=== PATIENT | female | born 1985 | race Caucasian/White ===

== ENCOUNTER 2019-03-02 14:55 | Observation (INO) | payer OTHER, SELFPAY ==
[2019-03-02] VITALS (8 sets, daily range): BP systolic 108–126; BP diastolic 70–80; PULSE 66–98; RESP 12–21; TEMP 36.3–36.7; O2SAT 94–100
--- NOTE | 2019-03-02 | PATH_ITS ---
[facility] Accession Number: [id number] . 01 Material submitted: . appendix - APPENDIX . 01 Clinical history: . ABDOMINAL PAIN . 02 Diagnosis: Appendix: Acute appendicitis. MRV/03/05/2019 . 02 Electronically signed: . Carloz Zelaya MD, Pathologist NPI- [id number] . 01 Gross description: . Received in formalin, labeled appendix, is an intact appendix (length-7.3 cm, diameter-0.9 cm) with bonilla-pink dull smooth serosa and attached mesoappendix (up to 1.0 cm in depth). The resection margin is received stapled. The lumen contains brown solid-soft material. The wall is up to 0.3 cm thick. No nodules, masses or lesions are identified. The resection margin is inked black. Section code: (A1) resection margin en face and three solar sales representative proximal serial sections; (A2) four solar sales representative distal serial sections; (A3) one half of the bivalved tip. ([id number]) /MRV . 02 Pathologist provided ICD-10: K35.80 . 02 CPT . 137028 Performed at: 01 [facility] [address], [place], [place] [id number] MD Ismael Aguillon MD Phone: [phone] Performed at: 02 [facility] [address] [place], [place] [id number] MD Sonia Qiu MD Phone: [phone]
--- NOTE | 2019-03-02 17:18 | DI.US.S_ITS ---
PROCEDURE: US PELVIC COMPLETE INDICATIONS: RIGHT LOWER QUADRANT PAIN TECHNIQUE: Real-time scanning was performed of the pelvic organs, with image documentation. Additional endovaginal scanning was necessary due to incomplete visualization of the adnexal and endometrial structures by transabdominal scanning. COMPARISON: [facility], CT, CT ABDOMEN PELVIS W CON, 03/02/2019, 18:40. FINDINGS: Transabdominal scanning: Limited scanning through the kidneys shows no hydronephrosis. No pathologic free abdominal or pelvic fluid. The appendix is not identified. Endovaginal scanning: Uterus: Uterus is retroverted and normal in size at 4.8 x 3 x 4.8 cm. No mass. The endometrium measures 6 mm in combined thickness. Ovaries: No mass or cystic lesion. Normal color and spectral Doppler. Right ovary measures 2.8 x 1.6 x 1.8 cm. Left ovary measures 1.9 x 1.1 x 1.7 cm. IMPRESSION: 1. Normal uterus and endometrium. Normal ovaries. 2. Appendix is not identified. No free fluid. Dictated by: Ezra Sam M.D. on 03/02/2019 at 19:38 Approved by: Ezra Sam M.D. on 03/02/2019 at 19:41
[2019-03-02 17:49] LABS: RBC Urine None Seen (0-5/HPF)
[2019-03-02 18:02] LABS: Bacteria Urine Occasional (0-1); Culture Indicated Urine Specimen Cultured; Renal Epithelial Cells Urine 0-1/HPF (0-1/HPF); Squamous Epithelial Cell Urine 0-1 /HPF (0-5/HPF); WBC Urine 1-5/HPF (0-5/HPF)
[2019-03-02 18:32] LABS: Add Manual Diff / Slide Review NO; Basophils Absolute Auto 0 /uL (0-100); Basophils Percent Auto 0.2 % (0-2); Eosinophils Absolute Auto 100 /uL (0-450); Eosinophils Percent Auto 0.5 % (2-4); Hematocrit 40.2 % (36-46); Hemoglobin 13.3 g/dL (12.0-16.0); Lymphocytes Absolute Auto 1100 /uL (1100-4500); Lymphocytes Percent Auto 9.1 % (25-40); Mean Corpuscular HGB Conc 33.1 % (30-36); Mean Corpuscular Hemoglobin 30.2 PG (26-34); Mean Corpuscular Volume 91.1 fL (80-100); Monocytes Absolute Auto 900 /uL (0-900); Monocytes Percent Auto 7.5 % (3-14); Neutrophils Absolute Auto 10100 /uL (1500-7000); Neutrophils Percent Auto 82.7 % (50-75); Platelet Count 244 X10^3/uL (150-400); Red Blood Cell Count 4.41 X10^6/uL (4.0-5.2); Red Cell Distribution Width 12.8 % (11.6-14.8); White Blood Cell Count 12.2 X10^3/uL (4.5-11.0)
--- NOTE | 2019-03-02 18:35 | DI.CT.S_ITS ---
PROCEDURE: CT ABDOMEN PELVIS W CON INDICATIONS: RLQ pain TECHNIQUE: After the administration of intravenous contrast, 5 mm thick sections acquired from the diaphragm to the symphysis. 5 mm coronal and sagittal reformats were acquired. For radiation dose reduction, the following was used: automated exposure control, adjustment of mA and/or kV according to patient size. COMPARISON: Same day pelvic ultrasound. FINDINGS: Image quality: Excellent. ABDOMEN: Lung bases: Lung bases are clear. Heart size is normal. Solid organs: Liver is normal in size and enhancement. Gallbladder is unremarkable. No calcified gallstones. Biliary system is non dilated. Pancreas enhances normally. Spleen is normal in size and enhancement. No adrenal nodules. Kidneys demonstrate normal size and enhancement, without hydronephrosis. Peritoneum and bowel: The appendix is mildly dilated measuring up to 1.2 cm, (2/50). There is a mild amount of surrounding fat stranding and trace free fluid. Question of a small appendicolith. No free air. No bowel obstruction. There is increased on the colon. Nodes and vessels: No retroperitoneal or mesenteric adenopathy by size criteria. Aorta and inferior vena cava are normal in size. Miscellaneous: No ventral hernias. PELVIS: Genitourinary: Uterus is vertically oriented/retroverted. Bladder wall thickness is normal. Miscellaneous: No inguinal hernias or adenopathy. Bones: No suspicious bony lesions. No vertebral body compression fractures. IMPRESSION: Findings consistent with acute appendicitis. No perforation demonstrated. Comment: Findings were discussed with MINERVA Sandoval at the time of dictation. Dictated by: Ezra Sam M.D. on 03/02/2019 at 19:41 Approved by: Ezra Sam M.D. on 03/02/2019 at 19:48
[2019-03-02 18:40] LABS: INR 1.1 (0.9-1.3); Prothrombin Time 12.5 SECONDS (10.1-12.7)
[2019-03-02 18:43] LABS: PTT Partial Thromboplastin Tim 32 SECONDS (26.4-36.2)
[2019-03-02 18:44] LABS: Alanine Aminotransferase 18 IU/L (9-52); Albumin 4.6 g/dL (3.5-5.0); Albumin Globulin Ratio 1.4 (1.0-2.8); Alkaline Phosphatase 94 U/L (38-126); Aspartate Aminotransferase 18 IU/L (14-36); BUN Creatinine Ratio 26.7 (6-22); Bilirubin Total 0.7 mg/dL (0.2-1.3); Blood Urea Nitrogen 16 mg/dL (7-17); Calcium 9.6 mg/dL (8.4-10.2); Carbon Dioxide 28 mmol/L (22-32); Chloride 104 mmol/L (98-107); Estimated Glomerular Filt Rate > 60.0 mL/min (>60); Globulin 3.3 g/dL (1.7-4.1); Glucose 86 mg/dL (70-100); HEMOLYSIS 29 (0-50); Lipase 112 U/L (23-300); Potassium 3.6 mmol/L (3.4-5.1); Sodium 142 mmol/L (137-145); Total Protein 7.9 g/dL (6.3-8.2)
[2019-03-02] MEDS: SODIUM CHLORIDE 0.9% 1,000 ML 150 ML IV (20:59)
[2019-03-02] MEDS: PIPERACILLIN-TAZO 3.375 GM/50 ML FROZ.PIGGY IV (20:59)
--- NOTE | 2019-03-02 21:15 | PM.HP.1 ---
History of Present Illness Date Patient Seen: 03/02/19 Time Patient Seen: 21:16 Chief complaint: ABDOMINAL PAIN Narrative: 33yo F [facility] the [facility] with just over 24 hrs of lower abd pain. It started as cramping pain but became sharper this morning. Now feels like a 'bad side stitch.' No nausea or vomiting. Came over to get assessed rather than stay on the [facility] overnight. Found to have a mild leukocytosis and CT findings consistent with appendicitis. She is non-toxic in appearance. Zosyn and IV fluids started in ED. She and have several appropriate questions and we reviewed all of these. She would like to pump prior to going back to the OR. Patient History Medical History Mother currently breast-feeding (Acute) Meds Home Medications Medication Instructions Recorded Confirmed Type No Known Home Medications 03/02/19 03/02/19 History Allergies Allergy/AdvReac Type Severity Reaction Status Date / Time No Known Drug Allergies Allergy Verified 03/02/19 21:00 Review of Systems Constitutional Constitutional: Reports as per HPI Exam Vital Signs (past 8 hours): - 03/02/19 16:29 Temperature 98.1 F Pulse Rate 90 Respiratory Rate 13 Blood Pressure 114/77 Pulse Oximetry 99 Oxygen Delivery Method Room Air Narrative Exam Narrative: AAO, NAD, female of healthy weight EOMI, MMM, no scleral icterus unlabored RA soft, nd, moderate ttp RLQ with no peritoneal signs MAEW visible skin dry and intact Objective Imaging CT scan - abdomen: Radiologist's impression: IMPRESSION: Findings consistent with acute appendicitis. No perforation demonstrated. Labs Result Diagrams: 03/02/19 17:00 03/02/19 17:00 Labs: Laboratory Results - last 24 hr 03/02/19 03/02/19 03/02/19 17:00 17:00 17:00 WBC 12.2 H RBC 4.41 Hgb 13.3 Hct 40.2 MCV 91.1 MCH 30.2 MCHC 33.1 RDW 12.8 Plt Count 244 Neut % (Auto) 82.7 H Lymph % (Auto) 9.1 L Beadle % (Auto) 7.5 Eos % (Auto) 0.5 L Baso % (Auto) 0.2 Neut # (Auto) 73087 H Lymph # (Auto) 1100 Beadle # (Auto) 900 Eos # (Auto) 100 Baso # (Auto) 0 PT 12.5 INR 1.1 APTT 32 Sodium 142 Potassium 3.6 Chloride 104 Carbon Dioxide 28 BUN 16 Creatinine 0.60 Estimated GFR > 60.0 BUN/Creatinine Ratio 26.7 H Glucose 86 Calcium 9.6 Total Bilirubin 0.7 AST 18 ALT 18 Alkaline Phosphatase 94 Total Protein 7.9 Albumin 4.6 Globulin 3.3 Albumin/Globulin Ratio 1.4 Lipase 112 Urine RBC Urine WBC Ur Squamous Epith Cells Ur Renal Epithelial Cell Urine Bacteria Ur Culture Indicated? 03/02/19 17:05 WBC RBC Hgb Hct MCV MCH MCHC RDW Plt Count Neut % (Auto) Lymph % (Auto) Beadle % (Auto) Eos % (Auto) Baso % (Auto) Neut # (Auto) Lymph # (Auto) Beadle # (Auto) Eos # (Auto) Baso # (Auto) PT INR APTT Sodium Potassium Chloride Carbon Dioxide BUN Creatinine Estimated GFR BUN/Creatinine Ratio Glucose Calcium Total Bilirubin AST ALT Alkaline Phosphatase Total Protein Albumin Globulin Albumin/Globulin Ratio Lipase Urine RBC None seen Urine WBC 1-5/hpf Ur Squamous Epith Cells 0-1 /hpf Ur Renal Epithelial Cell 0-1/hpf Urine Bacteria Occasional (0-1) Ur Culture Indicated? Specimen cultured Assessment & Plan (1) Appendicitis: Current visit: Yes Status: Acute Assessment & Plan narrative: - plan for OR --> all R/B/A discussed and pt wishes to proceed - Zosyn started in ED - IVFs, NPO, prn pain meds - discussed plan for travel home and breast feeding with caveat of changes pending OR findings and clinical course; pt and ask many appropriate questions and all current questions reviewed
--- NOTE | 2019-03-02 21:22 | P.HP_ITS ---
History of Present Illness Date Patient Seen: 03/02/19 Time Patient Seen: 21:16 Chief complaint: ABDOMINAL PAIN Narrative: 33yo F visiting the [facility] from the [facility] with just over 24 hrs of lower abd pain. It started as cramping pain but became sharper this morning. Now feels like a 'bad side stitch.' No nausea or vomiting. Came over to get assessed rather than stay on the [facility] overnight. Found to have a mild leukocytosis and CT findings consistent with appendicitis. She is non-toxic in appearance. Zosyn and IV fluids started in ED. She and have several appropriate questions and we reviewed all of these. She would like to pump prior to going back to the OR. Patient History Medical History Mother currently breast-feeding (Acute) Meds Home Medications Medication Instructions Recorded Confirmed Type No Known Home Medications 03/02/19 03/02/19 History Allergies Allergy/AdvReac Type Severity Reaction Status Date / Time No Known Drug Allergies Allergy Verified 03/02/19 21:00 Review of Systems Constitutional Constitutional: Reports as per HPI Exam Vital Signs (past 8 hours): - 03/02/19 16:29 Temperature 98.1 F Pulse Rate 90 Respiratory Rate 13 Blood Pressure 114/77 Pulse Oximetry 99 Oxygen Delivery Method Room Air Narrative Exam Narrative: AAO, NAD, female of healthy weight EOMI, MMM, no scleral icterus unlabored RA soft, nd, moderate ttp RLQ with no peritoneal signs MAEW visible skin dry and intact Objective Imaging CT scan - abdomen: Radiologist's impression: IMPRESSION: Findings consistent with acute appendicitis. No perforation demonstrated. Labs Result Diagrams: 03/02/19 17:00 03/02/19 17:00 Labs: Laboratory Results - last 24 hr 03/02/19 03/02/19 03/02/19 17:00 17:00 17:00 WBC 12.2 H RBC 4.41 Hgb 13.3 Hct 40.2 MCV 91.1 MCH 30.2 MCHC 33.1 RDW 12.8 Plt Count 244 Neut % (Auto) 82.7 H Lymph % (Auto) 9.1 L Butler % (Auto) 7.5 Eos % (Auto) 0.5 L Baso % (Auto) 0.2 Neut # (Auto) 21290 H Lymph # (Auto) 1100 Butler # (Auto) 900 Eos # (Auto) 100 Baso # (Auto) 0 PT 12.5 INR 1.1 APTT 32 Sodium 142 Potassium 3.6 Chloride 104 Carbon Dioxide 28 BUN 16 Creatinine 0.60 Estimated GFR > 60.0 BUN/Creatinine Ratio 26.7 H Glucose 86 Calcium 9.6 Total Bilirubin 0.7 AST 18 ALT 18 Alkaline Phosphatase 94 Total Protein 7.9 Albumin 4.6 Globulin 3.3 Albumin/Globulin Ratio 1.4 Lipase 112 Urine RBC Urine WBC Ur Squamous Epith Cells Ur Renal Epithelial Cell Urine Bacteria Ur Culture Indicated? 03/02/19 17:05 WBC RBC Hgb Hct MCV MCH MCHC RDW Plt Count Neut % (Auto) Lymph % (Auto) Butler % (Auto) Eos % (Auto) Baso % (Auto) Neut # (Auto) Lymph # (Auto) Butler # (Auto) Eos # (Auto) Baso # (Auto) PT INR APTT Sodium Potassium Chloride Carbon Dioxide BUN Creatinine Estimated GFR BUN/Creatinine Ratio Glucose Calcium Total Bilirubin AST ALT Alkaline Phosphatase Total Protein Albumin Globulin Albumin/Globulin Ratio Lipase Urine RBC None seen Urine WBC 1-5/hpf Ur Squamous Epith Cells 0-1 /hpf Ur Renal Epithelial Cell 0-1/hpf Urine Bacteria Occasional (0-1) Ur Culture Indicated? Specimen cultured Assessment & Plan (1) Appendicitis: Current visit: Yes Status: Acute Assessment & Plan narrative: - plan for OR --> all R/B/A discussed and pt wishes to proceed - Zosyn started in ED - IVFs, NPO, prn pain meds - discussed plan for travel home and breast feeding with caveat of changes pe nding OR findings and clinical course; pt and ask many appropriate questions and all current questions reviewed
--- NOTE | 2019-03-02 21:38 | ED.ABDPAIN ---
HPI - Abdominal Pain <[facility] - Last Filed: 03/02/19 21:44> General Chief Complaint: Abdominal Pain Stated Complaint: ABDOMINAL PAIN Time Seen by Provider: 03/02/19 15:47 Source: patient and family Mode of arrival: ambulatory Limitations: no limitations History of Present Illness HPI narrative: The patient is a 33-year-old female nonsmoker who is 6 months who presents with a chief complaint of right lower quadrant pain. She states it started in the center of her abdomen, like menstrual cramps and then radiated over to her right. She denies any fevers, complains of chills. She denies any vomiting or diarrhea, but complains of general malaise. The patient declined pain medications on my exam. She states she has not started her menstrual cycles again yet since she is breast feeding. She denies any overt fevers. She has not taken anything for pain. She denies any urgency dysuria or frequency. Last solid intake was 10:00 a.m.. Related Data Home Medications Medication Instructions Recorded Confirmed No Known Home Medications 03/02/19 03/02/19 Previous Rx's Medication Instructions Recorded oxycodone 5 mg PO Q4-6H PRN #30 tab 03/02/19 Allergies Allergy/AdvReac Type Severity Reaction Status Date / Time No Known Drug Allergies Allergy Verified 03/02/19 21:00 Review of Systems <PORTER Sandoval - Last Filed: 03/02/19 21:44> Review of Systems GENERAL: Denies chills, fatigue, malaise, fever, sweats. HEENT: Denies sinus pain, ear pain, sore throat, difficulty swallowing, dizziness. RESPIRATORY: Denies dyspnea, cough, wheezing, hemoptysis, sputum. CARDIOVASCULAR: Denies chest pain, palpitations, orthopnea, edema, GASTROINTESTINAL: See HPI : Denies dysuria, frequency, incontinence, hematuria, urinary retention. MUSCULOSKELETAL: denies weakness, joint pain, or bony pain SKIN: Denies rash, skin lesions, or other NEUROLOGIC: Denies weakness, headache, numbness, change in speech, confusion, seizures, incoordination. PSYCHIATRIC: No concerning psychosocial issues. 12 point review of systems is negative except for those stated above PFSH <[facility] - Last Filed: 03/02/19 21:44> Medical History Mother currently breast-feeding (Acute) Exam <ROSALINA Sandoval - Last Filed: 03/02/19 21:44> Narrative Exam Narrative: GENERAL: This is a well-nourished, well-developed patient, lying on stretcher HEAD: Atraumatic. Normocephalic. No temporal or scalp tenderness. EYES: Pupils equal round and reactive. Extraocular motions intact. No scleral icterus. No injection or drainage. ENT: Nose without bleeding, purulent drainage or septal hematoma. Throat without erythema, tonsillar hypertrophy or exudate. Uvula midline. Airway patent. NECK: Trachea midline. No JVD or lymphadenopathy. Supple, nontender, no meningeal signs. CARDIOVASCULAR: Regular rate and rhythm without murmurs, gallops, or rubs. RESPIRATORY: Clear to auscultation. Breath sounds equal bilaterally. No wheezes, rales, or rhonchi. No cough. No increased respiratory effort. No accessory muscle use. GASTROINTESTINAL: Abdomen soft, active bowel sounds all 4 quadrants. Patient has tenderness to palpation of right lower quadrant with slight guarding. No peritoneal signs noted. EXTREMITIES: No clubbing, cyanosis, or edema. No joint tenderness, effusion, or edema noted. BACK: Nontender without deformity or crepitance. No CVA tenderness bilaterally NEURO: AOx3. SKIN: No rash or erythema. Initial Vital Signs Initial Vital Signs: Vital Signs Temperature 98.1 F 03/02/19 16:29 Pulse Rate 90 03/02/19 16:29 Respiratory Rate 13 03/02/19 16:29 Blood Pressure 114/77 03/02/19 16:29 Pulse Oximetry 99 03/02/19 16:29 <Chase Barraza DO - Last Filed: 03/03/19 00:11> Initial Vital Signs Initial Vital Signs: Vital Signs Temperature 98.1 F 03/02/19 16:29 Pulse Rate 90 03/02/19 16:29 Respiratory Rate 13 03/02/19 16:29 Blood Pressure 114/77 03/02/19 16:29 Pulse Oximetry 99 03/02/19 16:29 Course <ROSALINA Sandoval - Last Filed: 03/02/19 21:44> Orders Ordered: ED Orders 03/02/19 17:00 Complete Blood Count AUTO DIFF Stat Comprehensive Metabolic Panel Stat Lipase Stat Partial Thromboplastin Time Stat Prothrombin Time INR Stat 03/02/19 17:05 Urine Culture Stat Urine Microscopic Stat 03/02/19 17:18 US pelvic complete Stat 03/02/19 18:35 CT abdomen pelvis w con Stat Acetaminophen (Tylenol) 650 mg PO Q6HR PRN PRN Reason: As Needed for Fever/Mild Pain Docusate Sodium (Colace) 100 mg PO BID PRN PRN Reason: Constipation Hydromorphone HCl (Dilaudid) 1 mg IV Q4HR PRN PRN Reason: Pain, Moderate (4-6) Sodium Chloride (Normal Saline 0.9%) 1,000 mls @ 100 mls/hr IV CONT KAI Ibuprofen (Advil) 600 mg PO Q6HR PRN PRN Reason: As Needed for Fever/Mild Pain Naloxone HCl (Narcan) 0.2 mg IV Q2MIN PRN PRN Reason: Opiate Reversal Oxycodone/Acetaminophen (Percocet 5/325) 1 tab PO Q4HR PRN PRN Reason: Pain, Moderate (4-6) Discontinued Medications Bupivacaine HCl/Epinephrine Bitart (Sensorcaine 0.25% W/ Epi (Pf)) 30 ml INJ INTRA-OP ONE Stop: 03/02/19 22:14 Last Admin: 03/02/19 22:15 Dose: 20 ml Hydromorphone HCl (Dilaudid) 0.5 mg IV Q5MIN PRN PRN Reason: Pain, Moderate (4-6) Stop: 03/03/19 00:01 Hydromorphone HCl (Dilaudid) 0.25 mg IV Q5MIN PRN PRN Reason: Pain, Mild (1-3) Hydromorphone HCl (Dilaudid) 1 mg IV Q5MIN PRN PRN Reason: Pain, Severe (7-10) Piperacillin/Tazobactam/Dextrose (Zosyn) 3.375 gm in 50 mls @ 100 mls/hr IV NOW ONE Stop: 03/02/19 20:30 Last Infusion: 03/02/19 21:57 Dose: 0 mls/hr Infusion: 03/02/19 21:34 Dose: 100 mls/hr Admin: 03/02/19 20:59 Dose: 100 mls/hr Sodium Chloride (Normal Saline 0.9%) 1,000 mls @ 150 mls/hr IV CONT KAI Last Infusion: 03/02/19 23:47 Dose: 0 mls/hr Infusion: 03/02/19 21:34 Dose: 150 mls/hr Admin: 03/02/19 20:59 Dose: 150 mls/hr Lactated Ringer's (Lactated Ringers) 1,000 mls @ 42 mls/hr IV CONT KAI Acetaminophen (Ofirmev) 1,000 mg in 100 mls @ 400 mls/hr IV NOW ONE Stop: 03/02/19 22:47 Last Infusion: 03/02/19 22:36 Dose: 0 mls/hr Admin: 03/02/19 22:20 Dose: 400 mls/hr Lorazepam (Ativan) 0.25 mg IV NOW PRN PRN Reason: Anxiety Last Admin: 03/02/19 23:15 Dose: 0.25 mg Ondansetron HCl (Zofran) 4 mg IV NOW PRN PRN Reason: Nausea And Vomiting Last Admin: 03/02/19 23:16 Dose: 4 mg Oxycodone HCl (Percolone) 5 mg PO Q30MIN PRN PRN Reason: Mild or moderate pain Last Admin: 03/02/19 23:31 Dose: 5 mg Vital Signs - 8 hr 03/02/19 16:29 03/02/19 21:35 03/02/19 23:04 Temperature 98.1 F 97.6 F Pulse Rate 90 98 H 89 Respiratory Rate 13 18 21 Blood Pressure 114/77 126/70 Blood Pressure [Left Arm] 108/72 Pulse Oximetry 99 99 97 03/02/19 23:07 03/02/19 23:12 03/02/19 23:17 Temperature Pulse Rate 75 70 68 Respiratory Rate 13 12 12 Blood Pressure 111/80 118/77 121/77 Blood Pressure [Left Arm] Pulse Oximetry 97 99 97 03/02/19 23:35 Temperature Pulse Rate 67 Respiratory Rate 12 Blood Pressure 121/80 Blood Pressure [Left Arm] Pulse Oximetry 94 <Chase Barraza DO - Last Filed: 03/03/19 00:11> Orders Ordered: ED Orders 03/02/19 17:00 Complete Blood Count AUTO DIFF Stat Comprehensive Metabolic Panel Stat Lipase Stat Partial Thromboplastin Time Stat Prothrombin Time INR Stat 03/02/19 17:05 Urine Culture Stat Urine Microscopic Stat 03/02/19 17:18 US pelvic complete Stat 03/02/19 18:35 CT abdomen pelvis w con Stat Acetaminophen (Tylenol) 650 mg PO Q6HR PRN PRN Reason: As Needed for Fever/Mild Pain Docusate Sodium (Colace) 100 mg PO BID PRN PRN Reason: Constipation Hydromorphone HCl (Dilaudid) 1 mg IV Q4HR PRN PRN Reason: Pain, Moderate (4-6) Sodium Chloride (Normal Saline 0.9%) 1,000 mls @ 100 mls/hr IV CONT KAI Ibuprofen (Advil) 600 mg PO Q6HR PRN PRN Reason: As Needed for Fever/Mild Pain Naloxone HCl (Narcan) 0.2 mg IV Q2MIN PRN PRN Reason: Opiate Reversal Oxycodone/Acetaminophen (Percocet 5/325) 1 tab PO Q4HR PRN PRN Reason: Pain, Moderate (4-6) Discontinued Medications Bupivacaine HCl/Epinephrine Bitart (Sensorcaine 0.25% W/ Epi (Pf)) 30 ml INJ INTRA-OP ONE Stop: 03/02/19 22:14 Last Admin: 03/02/19 22:15 Dose: 20 ml Hydromorphone HCl (Dilaudid) 0.5 mg IV Q5MIN PRN PRN Reason: Pain, Moderate (4-6) Stop: 03/03/19 00:01 Hydromorphone HCl (Dilaudid) 0.25 mg IV Q5MIN PRN PRN Reason: Pain, Mild (1-3) Hydromorphone HCl (Dilaudid) 1 mg IV Q5MIN PRN PRN Reason: Pain, Severe (7-10) Piperacillin/Tazobactam/Dextrose (Zosyn) 3.375 gm in 50 mls @ 100 mls/hr IV NOW ONE Stop: 03/02/19 20:30 Last Infusion: 03/02/19 21:57 Dose: 0 mls/hr Infusion: 03/02/19 21:34 Dose: 100 mls/hr Admin: 03/02/19 20:59 Dose: 100 mls/hr Sodium Chloride (Normal Saline 0.9%) 1,000 mls @ 150 mls/hr IV CONT KAI Last Infusion: 03/02/19 23:47 Dose: 0 mls/hr Infusion: 03/02/19 21:34 Dose: 150 mls/hr Admin: 03/02/19 20:59 Dose: 150 mls/hr Lactated Ringer's (Lactated Ringers) 1,000 mls @ 42 mls/hr IV CONT KAI Acetaminophen (Ofirmev) 1,000 mg in 100 mls @ 400 mls/hr IV NOW ONE Stop: 03/02/19 22:47 Last Infusion: 03/02/19 22:36 Dose: 0 mls/hr Admin: 03/02/19 22:20 Dose: 400 mls/hr Lorazepam (Ativan) 0.25 mg IV NOW PRN PRN Reason: Anxiety Last Admin: 03/02/19 23:15 Dose: 0.25 mg Ondansetron HCl (Zofran) 4 mg IV NOW PRN PRN Reason: Nausea And Vomiting Last Admin: 03/02/19 23:16 Dose: 4 mg Oxycodone HCl (Percolone) 5 mg PO Q30MIN PRN PRN Reason: Mild or moderate pain Last Admin: 03/02/19 23:31 Dose: 5 mg Vital Signs - 8 hr 03/02/19 16:29 03/02/19 21:35 03/02/19 23:04 Temperature 98.1 F 97.6 F Pulse Rate 90 98 H 89 Respiratory Rate 13 18 21 Blood Pressure 114/77 126/70 Blood Pressure [Left Arm] 108/72 Pulse Oximetry 99 99 97 03/02/19 23:07 03/02/19 23:12 03/02/19 23:17 Temperature Pulse Rate 75 70 68 Respiratory Rate 13 12 12 Blood Pressure 111/80 118/77 121/77 Blood Pressure [Left Arm] Pulse Oximetry 97 99 97 03/02/19 23:35 Temperature Pulse Rate 67 Respiratory Rate 12 Blood Pressure 121/80 Blood Pressure [Left Arm] Pulse Oximetry 94 MDM - Abdominal Pain <ROSALINA Sandoval - Last Filed: 03/02/19 21:44> Lab Data Result diagrams: 03/02/19 17:00 03/02/19 17:00 Lab Results 03/02/19 03/02/19 03/02/19 Range/Units 17:00 17:00 17:00 WBC 12.2 H (4.5-11.0) X10^3/uL RBC 4.41 (4.0-5.2) X10^6/uL Hgb 13.3 (12.0-16.0) g/dL Hct 40.2 (36-46) % MCV 91.1 (80-100) fL MCH 30.2 (26-34) PG MCHC 33.1 (30-36) % RDW 12.8 (11.6-14.8) % Plt Count 244 (150-400) X10^3/uL Neut % (Auto) 82.7 H (50-75) % Lymph % (Auto) 9.1 L (25-40) % [place] % (Auto) 7.5 (3-14) % Eos % (Auto) 0.5 L (2-4) % Baso % (Auto) 0.2 (0-2) % Neut # (Auto) 69202 H (1975-3285) /uL Lymph # (Auto) 1100 (2485-1929) /uL [place] # (Auto) 900 (0-900) /uL Eos # (Auto) 100 (0-450) /uL Baso # (Auto) 0 (0-100) /uL PT 12.5 (10.1-12.7) SECONDS INR 1.1 (0.9-1.3) APTT 32 (26.4-36.2) SECONDS Sodium 142 (137-145) mmol/L Potassium 3.6 (3.4-5.1) mmol/L Chloride 104 (98-107) mmol/L Carbon Dioxide 28 (22-32) mmol/L BUN 16 (7-17) mg/dL Creatinine 0.60 (0.52-1.04) mg/dL Estimated GFR > 60.0 (>60) mL/min BUN/Creatinine Ratio 26.7 H (6-22) Glucose 86 (70-100) mg/dL Calcium 9.6 (8.4-10.2) mg/dL Total Bilirubin 0.7 (0.2-1.3) mg/dL AST 18 (14-36) IU/L ALT 18 (9-52) IU/L Alkaline Phosphatase 94 (38-126) U/L Total Protein 7.9 (6.3-8.2) g/dL Albumin 4.6 (3.5-5.0) g/dL Globulin 3.3 (1.7-4.1) g/dL Albumin/Globulin Ratio 1.4 (1.0-2.8) Lipase 112 (23-300) U/L Urine RBC (0-5/HPF) Urine WBC (0-5/HPF) Ur Squamous Epith Cells (0-5/HPF) Ur Renal Epithelial Cell (0-1/HPF) Urine Bacteria (None) Ur Culture Indicated? 03/02/19 Range/Units 17:05 WBC (4.5-11.0) X10^3/uL RBC (4.0-5.2) X10^6/uL Hgb (12.0-16.0) g/dL Hct (36-46) % MCV (80-100) fL MCH (26-34) PG MCHC (30-36) % RDW (11.6-14.8) % Plt Count (150-400) X10^3/uL Neut % (Auto) (50-75) % Lymph % (Auto) (25-40) % [place] % (Auto) (3-14) % Eos % (Auto) (2-4) % Baso % (Auto) (0-2) % Neut # (Auto) (3099-4646) /uL Lymph # (Auto) (9143-9960) /uL [place] # (Auto) (0-900) /uL Eos # (Auto) (0-450) /uL Baso # (Auto) (0-100) /uL PT (10.1-12.7) SECONDS INR (0.9-1.3) APTT (26.4-36.2) SECONDS Sodium (137-145) mmol/L Potassium (3.4-5.1) mmol/L Chloride (98-107) mmol/L Carbon Dioxide (22-32) mmol/L BUN (7-17) mg/dL Creatinine (0.52-1.04) mg/dL Estimated GFR (>60) mL/min BUN/Creatinine Ratio (6-22) Glucose (70-100) mg/dL Calcium (8.4-10.2) mg/dL Total Bilirubin (0.2-1.3) mg/dL AST (14-36) IU/L ALT (9-52) IU/L Alkaline Phosphatase (38-126) U/L Total Protein (6.3-8.2) g/dL Albumin (3.5-5.0) g/dL Globulin (1.7-4.1) g/dL Albumin/Globulin Ratio (1.0-2.8) Lipase (23-300) U/L Urine RBC None seen (0-5/HPF) Urine WBC 1-5/hpf (0-5/HPF) Ur Squamous Epith Cells 0-1 /hpf (0-5/HPF) Ur Renal Epithelial Cell 0-1/hpf (0-1/HPF) Urine Bacteria Occasional (0-1) (None) Ur Culture Indicated? Specimen cultured Point of care testing: Point of Care Testing Test Results Negative Urine Dip Bedside Urine Glucose Negative Bedside Urine Bilirubin - Negative Bedside Urine Ketone - Negative Urine Specific [place] 1.010 Bedside Urine Occult Blood - Negative Bedside Urine pH 6.0 Bedside Urine Protein - Negative Bedside Urine Urobilinogen - Negative Bedside Urine Nitrite - Negative Bedside Urine Leukocytes +/- [address] scan - abdomen: Radiologist's impression: Tana Combssca 33 F 1985 [place] [address] CT Scan Report Signed Patient: Magen CombsR#: [id number] : 1985Acct:[id number] Age/Sex: 33 / FDate of Service: 03/02/19 Loc: ED Accession Number: [id number] Procedure: CT abdomen pelvis w con Ordering Provider: Fozia Virk [facility]- PROCEDURE: CT ABDOMEN PELVIS W CON INDICATIONS: RLQ pain TECHNIQUE: After the administration of intravenous contrast, 5 mm thick sections acquired from the diaphragm to the symphysis. 5 mm coronal and sagittal reformats were acquired. For radiation dose reduction, the following was used: automated exposure control, adjustment of mA and/or kV according to patient size. COMPARISON: Same day pelvic ultrasound. FINDINGS: Image quality: Excellent. ABDOMEN: Lung bases: Lung bases are clear. Heart size is normal. Solid organs: Liver is normal in size and enhancement. Gallbladder is unremarkable. No calcified gallstones. Biliary system is non dilated. Pancreas enhances normally. Spleen is normal in size and enhancement. No adrenal nodules. Kidneys demonstrate normal size and enhancement, without hydronephrosis. Peritoneum and bowel: The appendix is mildly dilated measuring up to 1.2 cm, (2/50). There is a mild amount of surrounding fat stranding and trace free fluid. Question of a small appendicolith. No free air. No bowel obstruction. There is increased on the colon. Nodes and vessels: No retroperitoneal or mesenteric adenopathy by size criteria. Aorta and inferior vena cava are normal in size. Miscellaneous: No ventral hernias. PELVIS: Genitourinary: Uterus is vertically oriented/retroverted. Bladder wall thickness is normal. Miscellaneous: No inguinal hernias or adenopathy. Bones: No suspicious bony lesions. No vertebral body compression fractures. IMPRESSION: Findings consistent with acute appendicitis. No perforation demonstrated. Comment: Findings were discussed with MINERVA Sandoval at the time of dictation. Dictated by: Ezra Sam M.D. on 03/02/2019 at 19:41 Approved by: Ezra Sam M.D. on 03/02/2019 at 19:48 Pelvic ultrasound: Radiologist's impression: [facility] DATE TYPE STATUS AUTHOR Kingsley 03/02/19 18:35 Ezra Sam 03/02/19 17:18 Ezra Sam Francesca 33, F1985 [facility], 90A -1 58.967kg Search Chart No Data to Display ONSET Today 21:35 Tana Combssca 33 F 1985 [place] [address] Ultrasound Report Signed Patient: Magen CombsR#: [id number] : 1985Acct:[id number] Age/Sex: 33 / FDate of Service: 03/02/19 Loc: ED Accession Number: [id number] Procedure: US pelvic complete Ordering Provider: Fozia Virk- PROCEDURE: US PELVIC COMPLETE INDICATIONS: RIGHT LOWER QUADRANT PAIN TECHNIQUE: Real-time scanning was performed of the pelvic organs, with image documentation. Additional endovaginal scanning was necessary due to incomplete visualization of the adnexal and endometrial structures by transabdominal scanning. COMPARISON: [facility], CT, CT ABDOMEN PELVIS W CON, 03/02/2019, 18:40. FINDINGS: Transabdominal scanning: Limited scanning through the kidneys shows no hydronephrosis. No pathologic free abdominal or pelvic fluid. The appendix is not identified. Endovaginal scanning: Uterus: Uterus is retroverted and normal in size at 4.8 x 3 x 4.8 cm. No mass. The endometrium measures 6 mm in combined thickness. Ovaries: No mass or cystic lesion. Normal color and spectral Doppler. Right ovary measures 2.8 x 1.6 x 1.8 cm. Left ovary measures 1.9 x 1.1 x 1.7 cm. IMPRESSION: 1. Normal uterus and endometrium. Normal ovaries. 2. Appendix is not identified. No free fluid. Dictated by: Ezra Sam M.D. on 03/02/2019 at 19:38 Approved by: Ezra Sam M.D. on 03/02/2019 at 19:41 MDM Narrative Medical decision making narrative: The patient is a 33-year-old female who presents with a chief complaint of right lower quadrant pain. She had mild leukocytosis, and CT indications of appendicitis. I spoke with Dr. Antonio and started Zosyn on the patient. Dr Antonio came to the emergency department, evaluated the patient and brought her to the operating room. The patient repeatedly declined any pain and nausea medications during her stay in the ER. She is hemodynamically stable with her has been at her bedside. <Chase Barraza DO - Last Filed: 03/03/19 00:11> Lab Data Lab Results 03/02/19 03/02/19 03/02/19 Range/Units 17:00 17:00 17:00 WBC 12.2 H (4.5-11.0) X10^3/uL RBC 4.41 (4.0-5.2) X10^6/uL Hgb 13.3 (12.0-16.0) g/dL Hct 40.2 (36-46) % MCV 91.1 (80-100) fL MCH 30.2 (26-34) PG MCHC 33.1 (30-36) % RDW 12.8 (11.6-14.8) % Plt Count 244 (150-400) X10^3/uL Neut % (Auto) 82.7 H (50-75) % Lymph % (Auto) 9.1 L (25-40) % [place] % (Auto) 7.5 (3-14) % Eos % (Auto) 0.5 L (2-4) % Baso % (Auto) 0.2 (0-2) % Neut # (Auto) 80724 H (7218-5210) /uL Lymph # (Auto) 1100 (1945-1417) /uL [place] # (Auto) 900 (0-900) /uL Eos # (Auto) 100 (0-450) /uL Baso # (Auto) 0 (0-100) /uL PT 12.5 (10.1-12.7) SECONDS INR 1.1 (0.9-1.3) APTT 32 (26.4-36.2) SECONDS Sodium 142 (137-145) mmol/L Potassium 3.6 (3.4-5.1) mmol/L Chloride 104 (98-107) mmol/L Carbon Dioxide 28 (22-32) mmol/L BUN 16 (7-17) mg/dL Creatinine 0.60 (0.52-1.04) mg/dL Estimated GFR > 60.0 (>60) mL/min BUN/Creatinine Ratio 26.7 H (6-22) Glucose 86 (70-100) mg/dL Calcium 9.6 (8.4-10.2) mg/dL Total Bilirubin 0.7 (0.2-1.3) mg/dL AST 18 (14-36) IU/L ALT 18 (9-52) IU/L Alkaline Phosphatase 94 (38-126) U/L Total Protein 7.9 (6.3-8.2) g/dL Albumin 4.6 (3.5-5.0) g/dL Globulin 3.3 (1.7-4.1) g/dL Albumin/Globulin Ratio 1.4 (1.0-2.8) Lipase 112 (23-300) U/L Urine RBC (0-5/HPF) Urine WBC (0-5/HPF) Ur Squamous Epith Cells (0-5/HPF) Ur Renal Epithelial Cell (0-1/HPF) Urine Bacteria (None) Ur Culture Indicated? 03/02/19 Range/Units 17:05 WBC (4.5-11.0) X10^3/uL RBC (4.0-5.2) X10^6/uL Hgb (12.0-16.0) g/dL Hct (36-46) % MCV (80-100) fL MCH (26-34) PG MCHC (30-36) % RDW (11.6-14.8) % Plt Count (150-400) X10^3/uL Neut % (Auto) (50-75) % Lymph % (Auto) (25-40) % [place] % (Auto) (3-14) % Eos % (Auto) (2-4) % Baso % (Auto) (0-2) % Neut # (Auto) (5983-8261) /uL Lymph # (Auto) (6553-5473) /uL [place] # (Auto) (0-900) /uL Eos # (Auto) (0-450) /uL Baso # (Auto) (0-100) /uL PT (10.1-12.7) SECONDS INR (0.9-1.3) APTT (26.4-36.2) SECONDS Sodium (137-145) mmol/L Potassium (3.4-5.1) mmol/L Chloride (98-107) mmol/L Carbon Dioxide (22-32) mmol/L BUN (7-17) mg/dL Creatinine (0.52-1.04) mg/dL Estimated GFR (>60) mL/min BUN/Creatinine Ratio (6-22) Glucose (70-100) mg/dL Calcium (8.4-10.2) mg/dL Total Bilirubin (0.2-1.3) mg/dL AST (14-36) IU/L ALT (9-52) IU/L Alkaline Phosphatase (38-126) U/L Total Protein (6.3-8.2) g/dL Albumin (3.5-5.0) g/dL Globulin (1.7-4.1) g/dL Albumin/Globulin Ratio (1.0-2.8) Lipase (23-300) U/L Urine RBC None seen (0-5/HPF) Urine WBC 1-5/hpf (0-5/HPF) Ur Squamous Epith Cells 0-1 /hpf (0-5/HPF) Ur Renal Epithelial Cell 0-1/hpf (0-1/HPF) Urine Bacteria Occasional (0-1) (None) Ur Culture Indicated? Specimen cultured Point of care testing: Point of Care Testing Test Results Negative Urine Dip Bedside Urine Glucose Negative Bedside Urine Bilirubin - Negative Bedside Urine Ketone - Negative Urine Specific [place] 1.010 Bedside Urine Occult Blood - Negative Bedside Urine pH 6.0 Bedside Urine Protein - Negative Bedside Urine Urobilinogen - Negative Bedside Urine Nitrite - Negative Bedside Urine Leukocytes +/- [address] scan - abdomen: Radiologist's impression: [address] [address] [address] Scan Report Signed Patient: Eder Combs#: [id number] : 1985Acct:[id number] Age/Sex: 33 / FDate of Service: 03/02/19 Loc: ED Accession Number: [id number] Procedure: CT abdomen pelvis w con Ordering Provider: Fozia Virk-INÉS PROCEDURE: CT ABDOMEN PELVIS W CON INDICATIONS: RLQ pain TECHNIQUE: After the administration of intravenous contrast, 5 mm thick sections acquired from the diaphragm to the symphysis. 5 mm coronal and sagittal reformats were acquired. For radiation dose reduction, the following was used: automated exposure control, adjustment of mA and/or kV according to patient size. COMPARISON: Same day pelvic ultrasound. FINDINGS: Image quality: Excellent. ABDOMEN: Lung bases: Lung bases are clear. Heart size is normal. Solid organs: Liver is normal in size and enhancement. Gallbladder is unremarkable. No calcified gallstones. Biliary system is non dilated. Pancreas enhances normally. Spleen is normal in size and enhancement. No adrenal nodules. Kidneys demonstrate normal size and enhancement, without hydronephrosis. Peritoneum and bowel: The appendix is mildly dilated measuring up to 1.2 cm, (2/50). There is a mild amount of surrounding fat stranding and trace free fluid. Question of a small appendicolith. No free air. No bowel obstruction. There is increased on the colon. Nodes and vessels: No retroperitoneal or mesenteric adenopathy by size criteria. Aorta and inferior vena cava are normal in size. Miscellaneous: No ventral hernias. PELVIS: Genitourinary: Uterus is vertically oriented/retroverted. Bladder wall thickness is normal. Miscellaneous: No inguinal hernias or adenopathy. Bones: No suspicious bony lesions. No vertebral body compression fractures. IMPRESSION: Findings consistent with acute appendicitis. No perforation demonstrated. Comment: Findings were discussed with MINERVA Sandoval at the time of dictation. Dictated by: Ezra Sam M.D. on 03/02/2019 at 19:41 Approved by: Ezra Sam M.D. on 03/02/2019 at 19:48 US - abdomen: Radiologist's impression: [address] [address] Ultrasound Report Signed Patient: Eder Combs#: [id number] : 1985Acct:[id number] Age/Sex: 33 / FDate of Service: 03/02/19 Loc: ED Accession Number: [id number] Procedure: US pelvic complete Ordering Provider: Fozia Virk-BC PROCEDURE: US PELVIC COMPLETE INDICATIONS: RIGHT LOWER QUADRANT PAIN TECHNIQUE: Real-time scanning was performed of the pelvic organs, with image documentation. Additional endovaginal scanning was necessary due to incomplete visualization of the adnexal and endometrial structures by transabdominal scanning. COMPARISON: [facility], CT, CT ABDOMEN PELVIS W CON, 03/02/2019, 18:40. FINDINGS: Transabdominal scanning: Limited scanning through the kidneys shows no hydronephrosis. No pathologic free abdominal or pelvic fluid. The appendix is not identified. Endovaginal scanning: Uterus: Uterus is retroverted and normal in size at 4.8 x 3 x 4.8 cm. No mass. The endometrium measures 6 mm in combined thickness. Ovaries: No mass or cystic lesion. Normal color and spectral Doppler. Right ovary measures 2.8 x 1.6 x 1.8 cm. Left ovary measures 1.9 x 1.1 x 1.7 cm. IMPRESSION: 1. Normal uterus and endometrium. Normal ovaries. 2. Appendix is not identified. No free fluid. Dictated by: Ezra Sam M.D. on 03/02/2019 at 19:38 Approved by: Ezra Sam M.D. on 03/02/2019 at 19:41 Discharge Plan Departure Patient Disposition: Admitted as Observation Clinical Impression: Appendicitis Qualifiers: Appendicitis type: acute appendicitis Acute appendicitis type: unspecified acute appendicitis type Qualified Code(s): K35.80 - Unspecified acute appendicitis Discharge Date/Time: 03/02/19 21:37 Interventions: ED Discharge Assessment Last Done: 03/02/19 21:36 Admit Date/Time: 03/02/19 20:02 Admit Provider: Milagros Antonioan, DO - Last Filed: 03/03/19 00:11> Cosign ED Attending Cosignature Attestation: I was immediately available in the department for consultation. Documentation has been reviewed. I agree with assessment and plan.
--- NOTE | 2019-03-02 21:41 | ED_ITS ---
HPI - Abdominal Pain <[facility] - Last Filed: 03/02/19 21:44> General Chief Complaint: Abdominal Pain Stated Complaint: ABDOMINAL PAIN Time Seen by Provider: 03/02/19 15:47 Source: patient and family Mode of arrival: ambulatory Limitations: no limitations History of Present Illness HPI narrative: The patient is a 33-year-old female nonsmoker who is 6 months who presents with a chief complaint of right lower quadrant pain. She states it started in the center of her abdomen, like menstrual cramps and then radiated over to her right. She denies any fevers, complains of chills. She denies any vomiting or diarrhea, but complains of general malaise. The patient declined pain medications on my exam. She states she has not started her menstrual cycles again yet since she is breast feeding. She denies any overt fevers. She has not taken anything for pain. She denies any urgency dysuria or frequency. Last solid intake was 10:00 a.m.. Related Data Home Medications Medication Instructions Recorded Confirmed No Known Home Medications 03/02/19 03/02/19 Previous Rx's Medication Instructions Recorded oxycodone 5 mg PO Q4-6H PRN #30 tab 03/02/19 Allergies Allergy/AdvReac Type Severity Reaction Status Date / Time No Known Drug Allergies Allergy Verified 03/02/19 21:00 Review of Systems <PORTER Sandoval - Last Filed: 03/02/19 21:44> Review of Systems GENERAL: Denies chills, fatigue, malaise, fever, sweats. HEENT: Denies sinus pain, ear pain, sore throat, difficulty swallowing, dizziness. RESPIRATORY: Denies dyspnea, cough, wheezing, hemoptysis, sputum. CARDIOVASCULAR: Denies chest pain, palpitations, orthopnea, edema, GASTROINTESTINAL: See HPI : Denies dysuria, frequency, incontinence, hematuria, urinary retention. MUSCULOSKELETAL: denies weakness, joint pain, or bony pain SKIN: Denies rash, skin lesions, or other NEUROLOGIC: Denies weakness, headache, numbness, change in speech, confusion, seizures, incoordination. PSYCHIATRIC: No concerning psychosocial issues. 12 point review of systems is negative except for those stated above PFSH <[facility] - Last Filed: 03/02/19 21:44> Medical History Mother currently breast-feeding (Acute) Exam <ROSALINA Sandoval - Last Filed: 03/02/19 21:44> Narrative Exam Narrative: GENERAL: This is a well-nourished, well-developed patient, lying on stretcher HEAD: Atraumatic. Normocephalic. No temporal or scalp tenderness. EYES: Pupils equal round and reactive. Extraocular motions intact. No scleral icterus. No injection or drainage. ENT: Nose without bleeding, purulent drainage or septal hematoma. Throat without erythema, tonsillar hypertrophy or exudate. Uvula midline. Airway patent. NECK: Trachea midline. No JVD or lymphadenopathy. Supple, nontender, no meningeal signs. CARDIOVASCULAR: Regular rate and rhythm without murmurs, gallops, or rubs. RESPIRATORY: Clear to auscultation. Breath sounds equal bilaterally. No wheezes, rales, or rhonchi. No cough. No increased respiratory effort. No accessory muscle use. GASTROINTESTINAL: Abdomen soft, active bowel sounds all 4 quadrants. Patient has tenderness to palpation of right lower quadrant with slight guarding. No peritoneal signs noted. EXTREMITIES: No clubbing, cyanosis, or edema. No joint tenderness, effusion, or edema noted. BACK: Nontender without deformity or crepitance. No CVA tenderness bilaterally NEURO: AOx3. SKIN: No rash or erythema. Initial Vital Signs Initial Vital Signs: Vital Signs Temperature 98.1 F 03/02/19 16:29 Pulse Rate 90 03/02/19 16:29 Respiratory Rate 13 03/02/19 16:29 Blood Pressure 114/77 03/02/19 16:29 Pulse Oximetry 99 03/02/19 16:29 <Chase Barraza DO - Last Filed: 03/03/19 00:11> Initial Vital Signs Initial Vital Signs: Vital Signs Temperature 98.1 F 03/02/19 16:29 Pulse Rate 90 03/02/19 16:29 Respiratory Rate 13 03/02/19 16:29 Blood Pressure 114/77 03/02/19 16:29 Pulse Oximetry 99 03/02/19 16:29 Course <ROSALINA Sandoval - Last Filed: 03/02/19 21:44> Orders Ordered: ED Orders 03/02/19 17:00 Complete Blood Count AUTO DIFF Stat Comprehensive Metabolic Panel Stat Lipase Stat Partial Thromboplastin Time Stat Prothrombin Time INR Stat 03/02/19 17:05 Urine Culture Stat Urine Microscopic Stat 03/02/19 17:18 US pelvic complete Stat 03/02/19 18:35 CT abdomen pelvis w con Stat Acetaminophen (Tylenol) 650 mg PO Q6HR PRN PRN Reason: As Needed for Fever/Mild Pain Docusate Sodium (Colace) 100 mg PO BID PRN PRN Reason: Constipation Hydromorphone HCl (Dilaudid) 1 mg IV Q4HR PRN PRN Reason: Pain, Moderate (4-6) Sodium Chloride (Normal Saline 0.9%) 1,000 mls @ 100 mls/hr IV CONT KAI Ibuprofen (Advil) 600 mg PO Q6HR PRN PRN Reason: As Needed for Fever/Mild Pain Naloxone HCl (Narcan) 0.2 mg IV Q2MIN PRN PRN Reason: Opiate Reversal Oxycodone/Acetaminophen (Percocet 5/325) 1 tab PO Q4HR PRN PRN Reason: Pain, Moderate (4-6) Discontinued Medications Bupivacaine HCl/Epinephrine Bitart (Sensorcaine 0.25% W/ Epi (Pf)) 30 ml INJ INTRA-OP ONE Stop: 03/02/19 22:14 Last Admin: 03/02/19 22:15 Dose: 20 ml Hydromorphone HCl (Dilaudid) 0.5 mg IV Q5MIN PRN PRN Reason: Pain, Moderate (4-6) Stop: 03/03/19 00:01 Hydromorphone HCl (Dilaudid) 0.25 mg IV Q5MIN PRN PRN Reason: Pain, Mild (1-3) Hydromorphone HCl (Dilaudid) 1 mg IV Q5MIN PRN PRN Reason: Pain, Severe (7-10) Piperacillin/Tazobactam/Dextrose (Zosyn) 3.375 gm in 50 mls @ 100 mls/hr IV NOW ONE Stop: 03/02/19 20:30 Last Infusion: 03/02/19 21:57 Dose: 0 mls/hr Infusion: 03/02/19 21:34 Dose: 100 mls/hr Admin: 03/02/19 20:59 Dose: 100 mls/hr Sodium Chloride (Normal Saline 0.9%) 1,000 mls @ 150 mls/hr IV CONT KAI Last Infusion: 03/02/19 23:47 Dose: 0 mls/hr Infusion: 03/02/19 21:34 Dose: 150 mls/hr Admin: 03/02/19 20:59 Dose: 150 mls/hr Lactated Ringer's (Lactated Ringers) 1,000 mls @ 42 mls/hr IV CONT KAI Acetaminophen (Ofirmev) 1,000 mg in 100 mls @ 400 mls/hr IV NOW ONE Stop: 03/02/19 22:47 Last Infusion: 03/02/19 22:36 Dose: 0 mls/hr Admin: 03/02/19 22:20 Dose: 400 mls/hr Lorazepam (Ativan) 0.25 mg IV NOW PRN PRN Reason: Anxiety Last Admin: 03/02/19 23:15 Dose: 0.25 mg Ondansetron HCl (Zofran) 4 mg IV NOW PRN PRN Reason: Nausea And Vomiting Last Admin: 03/02/19 23:16 Dose: 4 mg Oxycodone HCl (Percolone) 5 mg PO Q30MIN PRN PRN Reason: Mild or moderate pain Last Admin: 03/02/19 23:31 Dose: 5 mg Vital Signs - 8 hr 03/02/19 16:29 03/02/19 21:35 03/02/19 23:04 Temperature 98.1 F 97.6 F Pulse Rate 90 98 H 89 Respiratory Rate 13 18 21 Blood Pressure 114/77 126/70 Blood Pressure [Left Arm] 108/72 Pulse Oximetry 99 99 97 03/02/19 23:07 03/02/19 23:12 03/02/19 23:17 Temperature Pulse Rate 75 70 68 Respiratory Rate 13 12 12 Blood Pressure 111/80 118/77 121/77 Blood Pressure [Left Arm] Pulse Oximetry 97 99 97 03/02/19 23:35 Temperature Pulse Rate 67 Respiratory Rate 12 Blood Pressure 121/80 Blood Pressure [Left Arm] Pulse Oximetry 94 <Chase Barraza DO - Last Filed: 03/03/19 00:11> Orders Ordered: ED Orders 03/02/19 17:00 Complete Blood Count AUTO DIFF Stat Comprehensive Metabolic Panel Stat Lipase Stat Partial Thromboplastin Time Stat Prothrombin Time INR Stat 03/02/19 17:05 Urine Culture Stat Urine Microscopic Stat 03/02/19 17:18 US pelvic complete Stat 03/02/19 18:35 CT abdomen pelvis w con Stat Acetaminophen (Tylenol) 650 mg PO Q6HR PRN PRN Reason: As Needed for Fever/Mild Pain Docusate Sodium (Colace) 100 mg PO BID PRN PRN Reason: Constipation Hydromorphone HCl (Dilaudid) 1 mg IV Q4HR PRN PRN Reason: Pain, Moderate (4-6) Sodium Chloride (Normal Saline 0.9%) 1,000 mls @ 100 mls/hr IV CONT KAI Ibuprofen (Advil) 600 mg PO Q6HR PRN PRN Reason: As Needed for Fever/Mild Pain Naloxone HCl (Narcan) 0.2 mg IV Q2MIN PRN PRN Reason: Opiate Reversal Oxycodone/Acetaminophen (Percocet 5/325) 1 tab PO Q4HR PRN PRN Reason: Pain, Moderate (4-6) Discontinued Medications Bupivacaine HCl/Epinephrine Bitart (Sensorcaine 0.25% W/ Epi (Pf)) 30 ml INJ INTRA-OP ONE Stop: 03/02/19 22:14 Last Admin: 03/02/19 22:15 Dose: 20 ml Hydromorphone HCl (Dilaudid) 0.5 mg IV Q5MIN PRN PRN Reason: Pain, Moderate (4-6) Stop: 03/03/19 00:01 Hydromorphone HCl (Dilaudid) 0.25 mg IV Q5MIN PRN PRN Reason: Pain, Mild (1-3) Hydromorphone HCl (Dilaudid) 1 mg IV Q5MIN PRN PRN Reason: Pain, Severe (7-10) Piperacillin/Tazobactam/Dextrose (Zosyn) 3.375 gm in 50 mls @ 100 mls/hr IV NOW ONE Stop: 03/02/19 20:30 Last Infusion: 03/02/19 21:57 Dose: 0 mls/hr Infusion: 03/02/19 21:34 Dose: 100 mls/hr Admin: 03/02/19 20:59 Dose: 100 mls/hr Sodium Chloride (Normal Saline 0.9%) 1,000 mls @ 150 mls/hr IV CONT KAI Last Infusion: 03/02/19 23:47 Dose: 0 mls/hr Infusion: 03/02/19 21:34 Dose: 150 mls/hr Admin: 03/02/19 20:59 Dose: 150 mls/hr Lactated Ringer's (Lactated Ringers) 1,000 mls @ 42 mls/hr IV CONT KAI Acetaminophen (Ofirmev) 1,000 mg in 100 mls @ 400 mls/hr IV NOW ONE Stop: 03/02/19 22:47 Last Infusion: 03/02/19 22:36 Dose: 0 mls/hr Admin: 03/02/19 22:20 Dose: 400 mls/hr Lorazepam (Ativan) 0.25 mg IV NOW PRN PRN Reason: Anxiety Last Admin: 03/02/19 23:15 Dose: 0.25 mg Ondansetron HCl (Zofran) 4 mg IV NOW PRN PRN Reason: Nausea And Vomiting Last Admin: 03/02/19 23:16 Dose: 4 mg Oxycodone HCl (Percolone) 5 mg PO Q30MIN PRN PRN Reason: Mild or moderate pain Last Admin: 03/02/19 23:31 Dose: 5 mg Vital Signs - 8 hr 03/02/19 16:29 03/02/19 21:35 03/02/19 23:04 Temperature 98.1 F 97.6 F Pulse Rate 90 98 H 89 Respiratory Rate 13 18 21 Blood Pressure 114/77 126/70 Blood Pressure [Left Arm] 108/72 Pulse Oximetry 99 99 97 03/02/19 23:07 03/02/19 23:12 03/02/19 23:17 Temperature Pulse Rate 75 70 68 Respiratory Rate 13 12 12 Blood Pressure 111/80 118/77 121/77 Blood Pressure [Left Arm] Pulse Oximetry 97 99 97 03/02/19 23:35 Temperature Pulse Rate 67 Respiratory Rate 12 Blood Pressure 121/80 Blood Pressure [Left Arm] Pulse Oximetry 94 MDM - Abdominal Pain <ROSALINA Sandoval - Last Filed: 03/02/19 21:44> Lab Data Result diagrams: 03/02/19 17:00 03/02/19 17:00 Lab Results 03/02/19 03/02/19 03/02/19 Range/Units 17:00 17:00 17:00 WBC 12.2 H (4.5-11.0) X10^3/uL RBC 4.41 (4.0-5.2) X10^6/uL Hgb 13.3 (12.0-16.0) g/dL Hct 40.2 (36-46) % MCV 91.1 (80-100) fL MCH 30.2 (26-34) PG MCHC 33.1 (30-36) % RDW 12.8 (11.6-14.8) % Plt Count 244 (150-400) X10^3/uL Neut % (Auto) 82.7 H (50-75) % Lymph % (Auto) 9.1 L (25-40) % Lander % (Auto) 7.5 (3-14) % Eos % (Auto) 0.5 L (2-4) % Baso % (Auto) 0.2 (0-2) % Neut # (Auto) 09210 H (0101-5390) /uL Lymph # (Auto) 1100 (1102-4590) /uL Lander # (Auto) 900 (0-900) /uL Eos # (Auto) 100 (0-450) /uL Baso # (Auto) 0 (0-100) /uL PT 12.5 (10.1-12.7) SECONDS INR 1.1 (0.9-1.3) APTT 32 (26.4-36.2) SECONDS Sodium 142 (137-145) mmol/L Potassium 3.6 (3.4-5.1) mmol/L Chloride 104 (98-107) mmol/L Carbon Dioxide 28 (22-32) mmol/L BUN 16 (7-17) mg/dL Creatinine 0.60 (0.52-1.04) mg/dL Estimated GFR > 60.0 (>60) mL/min BUN/Creatinine Ratio 26.7 H (6-22) Glucose 86 (70-100) mg/dL Calcium 9.6 (8.4-10.2) mg/dL Total Bilirubin 0.7 (0.2-1.3) mg/dL AST 18 (14-36) IU/L ALT 18 (9-52) IU/L Alkaline Phosphatase 94 (38-126) U/L Total Protein 7.9 (6.3-8.2) g/dL Albumin 4.6 (3.5-5.0) g/dL Globulin 3.3 (1.7-4.1) g/dL Albumin/Globulin Ratio 1.4 (1.0-2.8) Lipase 112 (23-300) U/L Urine RBC (0-5/HPF) Urine WBC (0-5/HPF) Ur Squamous Epith Cells (0-5/HPF) Ur Renal Epithelial Cell (0-1/HPF) Urine Bacteria (None) Ur Culture Indicated? 03/02/19 Range/Units 17:05 WBC (4.5-11.0) X10^3/uL RBC (4.0-5.2) X10^6/uL Hgb (12.0-16.0) g/dL Hct (36-46) % MCV (80-100) fL MCH (26-34) PG MCHC (30-36) % RDW (11.6-14.8) % Plt Count (150-400) X10^3/uL Neut % (Auto) (50-75) % Lymph % (Auto) (25-40) % Lander % (Auto) (3-14) % Eos % (Auto) (2-4) % Baso % (Auto) (0-2) % Neut # (Auto) (2019-1486) /uL Lymph # (Auto) (5571-6833) /uL Lander # (Auto) (0-900) /uL Eos # (Auto) (0-450) /uL Baso # (Auto) (0-100) /uL PT (10.1-12.7) SECONDS INR (0.9-1.3) APTT (26.4-36.2) SECONDS Sodium (137-145) mmol/L Potassium (3.4-5.1) mmol/L Chloride (98-107) mmol/L Carbon Dioxide (22-32) mmol/L BUN (7-17) mg/dL Creatinine (0.52-1.04) mg/dL Estimated GFR (>60) mL/min BUN/Creatinine Ratio (6-22) Glucose (70-100) mg/dL Calcium (8.4-10.2) mg/dL Total Bilirubin (0.2-1.3) mg/dL AST (14-36) IU/L ALT (9-52) IU/L Alkaline Phosphatase (38-126) U/L Total Protein (6.3-8.2) g/dL Albumin (3.5-5.0) g/dL Globulin (1.7-4.1) g/dL Albumin/Globulin Ratio (1.0-2.8) Lipase (23-300) U/L Urine RBC None seen (0-5/HPF) Urine WBC 1-5/hpf (0-5/HPF) Ur Squamous Epith Cells 0-1 /hpf (0-5/HPF) Ur Renal Epithelial Cell 0-1/hpf (0-1/HPF) Urine Bacteria Occasional (0-1) (None) Ur Culture Indicated? Specimen cultured Point of care testing: Point of Care Testing Test Results Negative Urine Dip Bedside Urine Glucose Negative Bedside Urine Bilirubin - Negative Bedside Urine Ketone - Negative Urine Specific Cleghorn 1.010 Bedside Urine Occult Blood - Negative Bedside Urine pH 6.0 Bedside Urine Protein - Negative Bedside Urine Urobilinogen - Negative Bedside Urine Nitrite - Negative Bedside Urine Leukocytes +/- [address] scan - abdomen: Radiologist's impression: Tana Combssca 33 F 1985 [place] [address] CT Scan Report Signed Patient: Magen CombsR#: [id number] : 1985Acct:[id number] Age/Sex: 33 / FDate of Service: 03/02/19 Loc: ED Accession Number: [id number] Procedure: CT abdomen pelvis w con Ordering Provider: Fozia Virk [facility]- PROCEDURE: CT ABDOMEN PELVIS W CON INDICATIONS: RLQ pain TECHNIQUE: After the administration of intravenous contrast, 5 mm thick sections acquired from the diaphragm to the symphysis. 5 mm coronal and sagittal reformats were acquired. For radiation dose reduction, the following was used: automated exposure control, adjustment of mA and/or kV according to patient size. COMPARISON: Same day pelvic ultrasound. FINDINGS: Image quality: Excellent. ABDOMEN: Lung bases: Lung bases are clear. Heart size is normal. Solid organs: Liver is normal in size and enhancement. Gallbladder is unremarkable. No calcified gallstones. Biliary system is non dilated. Pancreas enhances normally. Spleen is normal in size and enhancement. No adrenal nodules. Kidneys dem onstrate normal size and enhancement, without hydronephrosis. Peritoneum and bowel: The appendix is mildly dilated measuring up to 1.2 cm, (2/50). There is a mild amount of surrounding fat stranding and trace free fluid. Question of a small appendicolith. No free air. No bowel obstruction. There is increased on the colon. Nodes and vessels: No retroperitoneal or mesenteric adenopathy by size criteria. Aorta and inferior vena cava are normal in size. Miscellaneous: No ventral hernias. PELVIS: Genitourinary: Uterus is vertically oriented/retroverted. Bladder wall thickness is normal. Miscellaneous: No inguinal hernias or adenopathy. Bones: No suspicious bony lesions. No vertebral body compression fractures. IMPRESSION: Findings consistent with acute appendicitis. No perforation demonstrated. Comment: Findings were discussed with MINERVA Sandoval at the time of dictation. Dictated by: Ezra Sam M.D. on 03/02/2019 at 19:41 Approved by: Ezra Sam M.D. on 03/02/2019 at 19:48 Pelvic ultrasound: Radiologist's impression: [facility] DATE TYPE STATUS AUTHOR Hx 03/02/19 18:35 Ezra Sam 03/02/19 17:18 Ezra Sam Francesca 33, F1985 [employer], 90A -1 58.967kg Search Chart No Data to Display ONSET Today 21:35 Tana Combssca 33 F 1985 [place] [address] Ultrasound Report Signed Patient: Magen CombsCaitlyn#: [id number] : 1985Acct:[id number] Age/Sex: 33 / FDate of Service: 03/02/19 Loc: ED Accession Number: [id number] Procedure: US pelvic complete Ordering Provider: Fozia Virk- PROCEDURE: US PELVIC COMPLETE INDICATIONS: RIGHT LOWER QUADRANT PAIN TECHNIQUE: Real-time scanning was performed of the pelvic organs, with image documentation. Additional endovaginal scanning was necessary due to incomplete visualization of the adnexal and endometrial structures by transabdominal scanning. COMPARISON: [facility], CT, CT ABDOMEN PELVIS W CON, 03/02/2019, 18:40. FINDINGS: Transabdominal scanning: Limited scanning through the kidneys shows no hydronephrosis. No pathologic free abdominal or pelvic fluid. The appendix is not identified. Endovaginal scanning: Uterus: Uterus is retroverted and normal in size at 4.8 x 3 x 4.8 cm. No mass. The endometrium measures 6 mm in combined thickness. Ovaries: No mass or cystic lesion. Normal color and spectral Doppler. Right ovary measures 2.8 x 1.6 x 1.8 cm. Left ovary measures 1.9 x 1.1 x 1.7 cm. IMPRESSION: 1. Normal uterus and endometrium. Normal ovaries. 2. Appendix is not identified. No free fluid. Dictated by: Ezra Sam M.D. on 03/02/2019 at 19:38 Approved by: Ezra Sam M.D. on 03/02/2019 at 19:41 MDM Narrative Medical decision making narrative: The patient is a 33-year-old female who presents with a chief complaint of right lower quadrant pain. She had mild leukocytosis, and CT indications of appendicitis. I spoke with Dr. Antonio and started Zosyn on the patient. Dr Antonio came to the emergency department, evalua song the patient and brought her to the operating room. The patient repeatedly declined any pain and nausea medications during her stay in the ER. She is hemodynamically stable with her has been at her bedside. <Chase Barraza, - Last Filed: 03/03/19 00:11> Lab Data Lab Results 03/02/19 03/02/19 03/02/19 Range/Units 17:00 17:00 17:00 WBC 12.2 H (4.5-11.0) X10^3/uL RBC 4.41 (4.0-5.2) X10^6/uL Hgb 13.3 (12.0-16.0) g/dL Hct 40.2 (36-46) % MCV 91.1 (80-100) fL MCH 30.2 (26-34) PG MCHC 33.1 (30-36) % RDW 12.8 (11.6-14.8) % Plt Count 244 (150-400) X10^3/uL Neut % (Auto) 82.7 H (50-75) % Lymph % (Auto) 9.1 L (25-40) % Lander % (Auto) 7.5 (3-14) % Eos % (Auto) 0.5 L (2-4) % Baso % (Auto) 0.2 (0-2) % Neut # (Auto) 88431 H (3947-0013) /uL Lymph # (Auto) 1100 (8072-6332) /uL Lander # (Auto) 900 (0-900) /uL Eos # (Auto) 100 (0-450) /uL Baso # (Auto) 0 (0-100) /uL PT 12.5 (10.1-12.7) SECONDS INR 1.1 (0.9-1.3) APTT 32 (26.4-36.2) SECONDS Sodium 142 (137-145) mmol/L Potassium 3.6 (3.4-5.1) mmol/L Chloride 104 (98-107) mmol/L Carbon Dioxide 28 (22-32) mmol/L BUN 16 (7-17) mg/dL Creatinine 0.60 (0.52-1.04) mg/dL Estimated GFR > 60.0 (>60) mL/min BUN/Creatinine Ratio 26.7 H (6-22) Glucose 86 (70-100) mg/dL Calcium 9.6 (8.4-10.2) mg/dL Total Bilirubin 0.7 (0.2-1.3) mg/dL AST 18 (14-36) IU/L ALT 18 (9-52) IU/L Alkaline Phosphatase 94 (38-126) U/L Total Protein 7.9 (6.3-8.2) g/dL Albumin 4.6 (3.5-5.0) g/dL Globulin 3.3 (1.7-4.1) g/dL Albumin/Globulin Ratio 1.4 (1.0-2.8) Lipase 112 (23-300) U/L Urine RBC (0-5/HPF) Urine WBC (0-5/HPF) Ur Squamous Epith Cells (0-5/HPF) Ur Renal Epithelial Cell (0-1/HPF) Urine Bacteria (None) Ur Culture Indicated? 03/02/19 Range/Units 17:05 WBC (4.5-11.0) X10^3/uL RBC (4.0-5.2) X10^6/uL Hgb (12.0-16.0) g/dL Hct (36-46) % MCV (80-100) fL MCH (26-34) PG MCHC (30-36) % RDW (11.6-14.8) % Plt Count (150-400) X10^3/uL Neut % (Auto) (50-75) % Lymph % (Auto) (25-40) % Lander % (Auto) (3-14) % Eos % (Auto) (2-4) % Baso % (Auto) (0-2) % Neut # (Auto) (5193-4420) /uL Lymph # (Auto) (1299-6830) /uL Lander # (Auto) (0-900) /uL Eos # (Auto) (0-450) /uL Baso # (Auto) (0-100) /uL PT (10.1-12.7) SECONDS INR (0.9-1.3) APTT (26.4-36.2) SECONDS Sodium (137-145) mmol/L Potassium (3.4-5.1) mmol/L Chloride (98-107) mmol/L Carbon Dioxide (22-32) mmol/L BUN (7-17) mg/dL Creatinine (0.52-1.04) mg/dL Estimated GFR (>60) mL/min BUN/Creatinine Ratio (6-22) Glucose (70-100) mg/dL Calcium (8.4-10.2) mg/dL Total Bilirubin (0.2-1.3) mg/dL AST (14-36) IU/L ALT (9-52) IU/L Alkaline Phosphatase (38-126) U/L Total Protein (6.3-8.2) g/dL Albumin (3.5-5.0) g/dL Globulin (1.7-4.1) g/dL Albumin/Globulin Ratio (1.0-2.8) Lipase (23-300) U/L Urine RBC None seen (0-5/HPF) Urine WBC 1-5/hpf (0-5/HPF) Ur Squamous Epith Cells 0-1 /hpf (0-5/HPF) Ur Renal Epithelial Cell 0-1/hpf (0-1/HPF) Urine Bacteria Occasional (0-1) (None) Ur Culture Indicated? Specimen cultured Point of care testing: Point of Care Testing Test Results Negative Urine Dip Bedside Urine Glucose Negative Bedside Urine Bilirubin - Negative Bedside Urine Ketone - Negative Urine Specific [place] 1.010 Bedside Urine Occult Blood - Negative Bedside Urine pH 6.0 Bedside Urine Protein - Negative Bedside Urine Urobilinogen - Negative Bedside Urine Nitrite - Negative Bedside Urine Leukocytes +/- [address] scan - abdomen: Radiologist's impression: [address] [address] [address] Scan Report Signed Patient: Magen CombsR#: [id number] : 1985Acct:[id number] Age/Sex: 33 / FDate of Service: 03/02/19 Loc: ED Accession Number: [id number] Procedure: CT abdomen pelvis w con Ordering Provider: Fozia Virk PROCEDURE: CT ABDOMEN PELVIS W CON INDICATIONS: RLQ pain TECHNIQUE: After the administration of intravenous contrast, 5 mm thick sections acquired from the diaphragm to the symphysis. 5 mm coronal and sagittal reformats were acquired. For radiation dose reduction, the following was used: automated exposure control, adjustment of mA and/or kV according to patient size. COMPARISON: Same day pelvic ultrasound. FINDINGS: Image quality: Excellent. ABDOMEN: Lung bases: Lung bases are clear. Heart size is normal. Solid organs: Liver is normal in size and enhancement. Gallbladder is un remarkable. No calcified gallstones. Biliary system is non dilated. Pancreas enhances normally. Spleen is normal in size and enhancement. No adrenal nodules. Kidneys demonstrate normal size and enhancement, without hydronephrosis. Peritoneum and bowel: The appendix is mildly dilated measuring up to 1.2 cm, (2/50). There is a mild amount of surrounding fat stranding and trace free fluid. Question of a small appendicolith. No free air. No bowel obstruction. There is increased on the colon. Nodes and vessels: No retroperitoneal or mesenteric adenopathy by size criteria. Aorta and inferior vena cava are normal in size. Miscellaneous: No ventral hernias. PELVIS: Genitourinary: Uterus is vertically oriented/retroverted. Bladder wall thickness is normal. Miscellaneous: No inguinal hernias or adenopathy. Bones: No suspicious bony lesions. No vertebral body compression fractures. IMPRESSION: Findings consistent with acute appendicitis. No perforation demonstrated. Comment: Findings were discussed with MINERVA Sandoval at the time of dicta tion. Dictated by: Ezra Sam M.D. on 03/02/2019 at 19:41 Approved by: Ezra Sam M.D. on 03/02/2019 at 19:48 US - abdomen: Radiologist's impression: [address] [address] Ultrasound Report Signed Patient: Eder Combs#: [id number] : 1985Acct:[id number] Age/Sex: 33 / FDate of Service: 03/02/19 Loc: ED Accession Number: [id number] Procedure: US pelvic complete Ordering Provider: Fozia Virk-[facility] PROCEDURE: US PELVIC COMPLETE INDICATIONS: RIGHT LOWER QUADRANT PAIN TECHNIQUE: Real-time scanning was performed of the pelvic organs, with image documentation. Additional endovaginal scanning was necessary due to incomplete visualization of the adnexal and endometrial structures by transabdominal scanning. COMPARISON: [facility], CT, CT ABDOMEN PELVIS W CON, 03/02/2019, 18:40. FINDINGS: Transabdominal scanning: Limited scanning through the kidneys shows no hydronephrosis. No pathologic free abdominal or pelvic fluid. The appendix is not identified. Endovaginal scanning: Uterus: Uterus is retroverted and normal in size at 4.8 x 3 x 4.8 cm. No mass. The endometrium measures 6 mm in combined thickness. Ovaries: No mass or cystic lesion. Normal color and spectral Doppler. Right ovary measures 2.8 x 1.6 x 1.8 cm. Left ovary measures 1.9 x 1.1 x 1.7 cm. IMPRESSION: 1. Normal uterus and endometrium. Normal ovaries. 2. Appendix is not identified. No free fluid. Dictated by: Ezra Sam M.D. on 03/02/2019 at 19:38 Approved by: Ezra Sam M.D. on 03/02/2019 at 19:41 Discharge Plan Departure Patient Disposition: Admitted as Observation Clinical Impression: Appendicitis Qualifiers: Appendicitis type: acute appendicitis Acute appendicitis type: unspecified acute appendicitis type Qualified Code(s): K35.80 - Unspecified acute appendicitis Discharge Date/Time: 03/02/19 21:37 Interventions: ED Discharge Assessment Last Done: 03/02/19 21:36 Admit Date/Time: 03/02/19 20:02 Admit Provider: Milagros Antonio <Chase Barraza, DO - Last Filed: 03/03/19 00:11> Cosign ED Attending Jonathanature Attestation: I was immediately available in the department for consultation. Documentation has been reviewed. I agree with assessment and plan.
--- NOTE | 2019-03-02 22:05 | SUR.OPER ---
Supine on padded OR bed, head on pillow, safety belt at thigh, left arm padded and tucked at side. Right arm secured on padded arm oard <90 degrees abduction. Legs uncrossed. Padded footboard in place. Tape over blanket to secure lower legs.
[2019-03-02] MEDS: BUPIVACAINE 0.25% W/ EPI 30 ML VIAL INJ (22:15)
[2019-03-02] MEDS: ACETAMINOPHEN IV 1,000 MG/100 ML VIAL 400 MG IV (22:20)
--- NOTE | 2019-03-02 23:01 | PM.OP.1 ---
Operative Date/Time/Diagnoses Date of procedure: 03/02/19 Time of procedure: 23:01 Pre-op diagnosis: Appendicitis Post-op diagnosis: same Procedure & Clinicians Procedure: Laparoscopic Appendectomy Same procedure as scheduled: Yes Indications: 33yo otherwise healthy 6mo post female on vacation with family having one day of worsening abdominal pain and presents with findings of appendicitis. Surgeon: Milagros Tabler Click Yes if Unassisted: Yes Anesthesia Type: General Operative Notes Findings: tip appendicitis Closure Type: primary Specimen(s): other (appendix) Estimated Blood Loss (mL): 5 Procedure in detail: The patient was taken to the operating room and placed on the operating table in supine position. The abdomen was prepped and draped in sterile fashion and a timeout performed with the team present. Using a 15 blade scalpel after infiltration with local anesthesia, a subumbilical incision was made and carried down to the fascia with blunt dissection. The umbilical stalk was grasped and elevated and an incision made. Stay sutures of 0-Ethibond were placed on either side and the martinez trocar introduced. Once confirmed to be within the peritoneum, the abdomen was insufflated with air. Diagnostic laparoscopy showed no injury from initial trocar placement. Under direct vision and after infiltration with local anesthesia, an additional 5 mm trocar was then placed in the midline just above the pubic hairline and a 5 mm trocar was then placed in the left lower quadrant. The patient was then placed in left side down and in Trendelenberg position. The small bowel was retracted to the left side of the patient. The appendix was identified. This was grasped with a blunt grasper. The tip was noted to be dark and inflamed. Using a [place] dissector, a window was made between the mesoappendix and the appendix itself. Using a 45mm Endo HORACIO stapler with a tissue load, the appendix was transected out at the base. Using a vascular load, the mesoappendix was then transected with the Endo HORACIO stapler as well. The staple lines were noted to be intact with no evidence of leakage. Some bleeding was noted and this was addressed with isolated cautery and pressure until dry. The appendix was placed into an EndoCatch retrieval bag and removed through the 12 mm port without any difficulty. The subumbilical incision was closed with the stay sutures previously placed. The remainder of the local anesthesia was injected over each of the fascial incision sites. The secondary trocars were then removed under direct vision noting no bleeding. The abdomen was allowed to desufflate fully and the final trocar was removed. The skin incisions were then closed using 4-0 Monocryl in an interrupted subcuticular fashion. All counts were correct at the end of the procedure. The abdomen was cleaned and dried. Skin glue was placed over the incisions. The patient was awakened and taken to postanesthesia care unit in stable condition. Complications: none Condition: stable Disposition: PACU
[2019-03-02] MEDS: LORazepam 2 MG/ML INJ 0.25 MG IV (23:15)
[2019-03-02] MEDS: ONDANSETRON 4 MG/2 ML INJ IV (23:16)
[2019-03-02] MEDS: OXYCODONE IR 5 MG TABLET PO (23:31)
--- NOTE | 2019-03-02 23:47 | SUR.PHASEI ---
transferred to room 209 in stable condition. Report to BELEN Serrano.
[2019-03-03 00:15] VITALS: BP 123/75; PULSE 64; RESP 16; TEMP 36.7; O2SAT 96
[2019-03-03] MEDS: IBUPROFEN 600 MG TABLET PO ×2 (00:44→09:18)
[2019-03-03] MEDS: SODIUM CHLORIDE 0.9% 1,000 ML 100 ML IV (00:44)
[2019-03-03 00:45] VITALS: BP 113/74; PULSE 73; RESP 15; TEMP 37; O2SAT 100; O2SAT 97
[2019-03-03 00:47] VITALS: BMI 23.0
--- NOTE | 2019-03-03 02:14 | PC.NURSE ---
Addendum entered by Maggie Christiansen R.N. 03/03/19 06:51: Pt has questions about medications crossing into breast milk and how long she will need to pump and dump milk. This RN printed out educational handouts from [employer] and provided information to pt. Pt also requests consult today but request will be passed onto day shift as MD will need to order consult. Pt is aware. Original Note: Pt arrived to room 209 via bed from PACU at approx 2345. Awake but drowsy pt reports she was mildly confused but confusion resolved within 1 hr. Abd with lap sites x3 well approximated with surgical adhesive. No drainage or erythema noted. Reports abd tenderness; Medicated per mar. IVF started per orders. Denies nausea, advanced to reg diet per orders, advised pt to start with soft foods. Up to BSC. Steady on feet, voided 75 ml yellow urine. Bed alarm placed on. Spouse rooming in for the night.
[2019-03-03 02:15] VITALS: BP 102/65; PULSE 87; RESP 15; TEMP 36.6; O2SAT 94
[2019-03-03 02:45] VITALS: BP 111/78; PULSE 60; RESP 16; TEMP 36.9; O2SAT 95
[2019-03-03 06:56] VITALS: BP 110/76; PULSE 53; RESP 16; TEMP 36.6; O2SAT 96
[2019-03-03 08:00] VITALS: BP 104/66; PULSE 54; RESP 17; TEMP 36.5; O2SAT 96
--- NOTE | 2019-03-03 09:07 | PM.DS.1 ---
History of Present Illness Chief complaint: ABDOMINAL PAIN Narrative: 33yo F visiting the [facility] from the [facility] with just over 24 hrs of lower abd pain. It started as cramping pain but became sharper this morning. Now feels like a 'bad side stitch.' No nausea or vomiting. Came over to get assessed rather than stay on the [facility] overnight. Found to have a mild leukocytosis and CT findings consistent with appendicitis. She is non-toxic in appearance. Zosyn and IV fluids started in ED. She and have several appropriate questions and we reviewed all of these. She would like to pump prior to going back to the OR. Discharge Providers Date of admission: 03/02/19 20:02 Discharge Date: 03/03/19 Discharge provider: Milagros Antonio MD Summary Discharge Diagnosis: Appendicitis Hospital Course: 33yo female admitted with abd pain and found to have appendicitis. Underwent lap appendectomy and tolerated well. Discharged next day arnold diet and pain minimal. Is breast feeding and had a consultation in ED. Status at Discharge Cognitive/behavioral status at discharge: at baseline, oriented Functional status at discharge: independent ambulation Overall status at discharge: patient is progressing back to baseline Time Spent with Patient Less than 30 minutes Exam Vital Signs (past 8 hours): - 03/03/19 02:15 03/03/19 02:45 03/03/19 06:56 Temperature 97.9 F 98.4 F 97.8 F Pulse Rate 87 60 53 L Respiratory Rate 15 16 16 Blood Pressure 102/65 111/78 110/76 Pulse Oximetry 94 95 96 Oxygen Delivery Method Room Air Narrative Exam Narrative: AAO, NAD, female of healthy weight EOMI, MMM, no scleral icterus unlabored RA soft, nt/nd MAEW visible skin dry and intact Objective Labs Result Diagrams: 03/02/19 17:00 03/02/19 17:00 Labs: Laboratory Results - last 24 hr 03/02/19 03/02/19 03/02/19 17:00 17:00 17:00 WBC 12.2 H RBC 4.41 Hgb 13.3 Hct 40.2 MCV 91.1 MCH 30.2 MCHC 33.1 RDW 12.8 Plt Count 244 Neut % (Auto) 82.7 H Lymph % (Auto) 9.1 L Emanuel % (Auto) 7.5 Eos % (Auto) 0.5 L Baso % (Auto) 0.2 Neut # (Auto) 15853 H Lymph # (Auto) 1100 Emanuel # (Auto) 900 Eos # (Auto) 100 Baso # (Auto) 0 PT 12.5 INR 1.1 APTT 32 Sodium 142 Potassium 3.6 Chloride 104 Carbon Dioxide 28 BUN 16 Creatinine 0.60 Estimated GFR > 60.0 BUN/Creatinine Ratio 26.7 H Glucose 86 Calcium 9.6 Total Bilirubin 0.7 AST 18 ALT 18 Alkaline Phosphatase 94 Total Protein 7.9 Albumin 4.6 Globulin 3.3 Albumin/Globulin Ratio 1.4 Lipase 112 Urine RBC Urine WBC Ur Squamous Epith Cells Ur Renal Epithelial Cell Urine Bacteria Ur Culture Indicated? 03/02/19 17:05 WBC RBC Hgb Hct MCV MCH MCHC RDW Plt Count Neut % (Auto) Lymph % (Auto) Emanuel % (Auto) Eos % (Auto) Baso % (Auto) Neut # (Auto) Lymph # (Auto) Emanuel # (Auto) Eos # (Auto) Baso # (Auto) PT INR APTT Sodium Potassium Chloride Carbon Dioxide BUN Creatinine Estimated GFR BUN/Creatinine Ratio Glucose Calcium Total Bilirubin AST ALT Alkaline Phosphatase Total Protein Albumin Globulin Albumin/Globulin Ratio Lipase Urine RBC None seen Urine WBC 1-5/hpf Ur Squamous Epith Cells 0-1 /hpf Ur Renal Epithelial Cell 0-1/hpf Urine Bacteria Occasional (0-1) Ur Culture Indicated? Specimen cultured Discharge Plan Discharge Plan Patient Disposition: Home Discharge Med Rec/Prescriptions Prescriptions: New oxycodone 5 mg tablet 5 mg PO Q4-6H PRN (Reason: pain) Qty: 30 RF: 0 Continued No Known Home Medications RF: 0 Provider Discharge Instructions Diet: Diet as Tolerated Activity: no lifting/ exertion >20 lbs x4 weeks Cold/Heat Therapy: prn Skin/Wound/Dressing Care Skin care: ok to shower Visit Report/Discharge Packet Instructions: DI for an Appendectomy, DI for Laparoscopy Discharge Data Attending Provider: Milagros Antonio Admit Date/Time: 03/02/19 20:02
--- NOTE | 2019-03-03 09:10 | P.DS_ITS ---
History of Present Illness Chief complaint: ABDOMINAL PAIN Narrative: 33yo F visiting the [facility] from the [facility] with just over 24 hrs of lower abd pain. It started as cramping pain but became sharper this morning. Now feels like a 'bad side stitch.' No nausea or vomiting. Came over to get assessed rather than stay on the [facility] overnight. Found to have a mild leukocytosis and CT findings consistent with appendicitis. She is non-toxic in appearance. Zosyn and IV fluids started in ED. She and have several appropriate questions and we reviewed all of these. She would like to pump prior to going back to the OR. Discharge Providers Date of admission: 03/02/19 20:02 Discharge Date: 03/03/19 Discharge provider: Milagros Antonio MD Summary Discharge Diagnosis: Appendicitis Hospital Course: 33yo female admitted with abd pain and found to have appendicitis. Underwent lap appendectomy and tolerated well. Discharged next day arnold diet and pain minimal. Is breast feeding and had a consultation in ED. Status at Discharge Cognitive/behavioral status at discharge: at baseline, oriented Functional status at discharge: independent ambulation Overall status at discharge: patient is progressing back to baseline Time Spent with Patient Less than 30 minutes Exam Vital Signs (past 8 hours): - 03/03/19 02:15 03/03/19 02:45 03/03/19 06:56 Temperature 97.9 F 98.4 F 97.8 F Pulse Rate 87 60 53 L Respiratory Rate 15 16 16 Blood Pressure 102/65 111/78 110/76 Pulse Oximetry 94 95 96 Oxygen Delivery Method Room Air Narrative Exam Narrative: AAO, NAD, female of healthy weight EOMI, MMM, no scleral icterus unlabored RA soft, nt/nd MAEW visible skin dry and intact Objective Labs Result Diagrams: 03/02/19 17:00 03/02/19 17:00 Labs: Laboratory Results - last 24 hr 03/02/19 03/02/19 03/02/19 17:00 17:00 17:00 WBC 12.2 H RBC 4.41 Hgb 13.3 Hct 40.2 MCV 91.1 MCH 30.2 MCHC 33.1 RDW 12.8 Plt Count 244 Neut % (Auto) 82.7 H Lymph % (Auto) 9.1 L Nash % (Auto) 7.5 Eos % (Auto) 0.5 L Baso % (Auto) 0.2 Neut # (Auto) 92775 H Lymph # (Auto) 1100 Nash # (Auto) 900 Eos # (Auto) 100 Baso # (Auto) 0 PT 12.5 INR 1.1 APTT 32 Sodium 142 Potassium 3.6 Chloride 104 Carbon Dioxide 28 BUN 16 Creatinine 0.60 Estimated GFR > 60.0 BUN/Creatinine Ratio 26.7 H Glucose 86 Calcium 9.6 Total Bilirubin 0.7 AST 18 ALT 18 Alkaline Phosphatase 94 Total Protein 7.9 Albumin 4.6 Globulin 3.3 Albumin/Globulin Ratio 1.4 Lipase 112 Urine RBC Urine WBC Ur Squamous Epith Cells Ur Renal Epithelial Cell Urine Bacteria Ur Culture Indicated? 03/02/19 17:05 WBC RBC Hgb Hct MCV MCH MCHC RDW Plt Count Neut % (Auto) Lymph % (Auto) Nash % (Auto) Eos % (Auto) Baso % (Auto) Neut # (Auto) Lymph # (Auto) Nash # (Auto) Eos # (Auto) Baso # (Auto) PT INR APTT Sodium Potassium Chloride Carbon Dioxide BUN Creatinine Estimated GFR BUN/Creatinine Ratio Glucose Calcium Total Bilirubin AST ALT Alkaline Phosphatase Total Protein Albumin Globulin Albumin/Globulin Ratio Lipase Urine RBC None seen Urine WBC 1-5/hpf Ur Squamous Epith Cells 0-1 /hpf Ur Renal Epithelial Cell 0-1/hpf Urine Bacteria Occasional (0-1) Ur Culture Indicated? Specimen cultured Discharge Plan Discharge Plan Patient Disposition: Home Discharge Med Rec/Prescriptions Prescriptions: New oxycodone 5 mg tablet 5 mg PO Q4-6H PRN (Reason: pain) Qty: 30 RF: 0 Continued No Known Home Medications RF: 0 Provider Discharge Instructions Diet: Diet as Tolerated Activity: no lifting/ exertion >20 lbs x4 weeks Cold/Heat Therapy: prn Skin/Wound/Dressing Care Skin care: ok to shower Visit Report/Discharge Packet Instructions: DI for an Appendectomy, DI for Laparoscopy Discharge Data Attending Provider: Milagros Antonio Admit Date/Time: 03/02/19 20:02
[2019-03-03] MEDS: DOCUSATE 100 MG CAPSULE PO (09:19)
--- NOTE | 2019-03-03 11:08 | CM.DANOTE ---
DCP: Case received, EMR reviewed and met with patient. Introduced self and role. DCP template completed with information currently available. Patient is a 33 year old female who admitted yesterday evening to the care of the hospitalist team. PCP: Dr. Sandra Joyner. Payer: confirmed: [facility]. Patient came to the hospital via family vehicle secondary to abdominal pain. Patient holds diagnosis of acute appendicitis. She had laparoscopic surgery yesterday. Met with patient, pleasant. She and her are vacationing here from [place] [facility] [place].. There were staying on [facility], they have a grandmother that lives there. Patient also has a 6 month old girl. P: Patient is to be discharged home today, had just seen the surgeon. No barriers noted. Ely Escalona RN/[employer]
--- NOTE | 2019-03-18 10:04 | PC.NURSE ---
Late entry: NS stopped 03/03 [id number]
== END 2019-03-03 10:45 | disposition home or self-care (01) ==
LOC: ED 16:46 → AC 20:08
PROVIDERS: Emergency Medicine; Admitting Provider Surgery; Emergency Provider Nurse Practitioner Family; Visit Provider Surgery
PROC: 0DTJ4ZZ Resection of Appendix, Percutaneous Endoscopic Approach (ICD-10-PCS; CPT 44970; principal; 2019-03-02 20:35)
DX: K35.80 Unspecified acute appendicitis (principal); R10.9 Unspecified abdominal pain
CPT/HCPCS: 44970; 36591; 74177; 76830; 76856; 80053; 81003; 81015; 81025; 83690; 85025; 85610; 85730; 87086; 96361; 96365; 99220; 99283; 99284; G0378; J0131; J0330; J1100; J2060; J2250; J2405; J2543; J2704; J3010; Q9967